=== PATIENT | female | born 1945 | race Caucasian/White ===

== ENCOUNTER 2017-03-18 11:03 | Emergency (ER) | payer MEDICARE, BC ==
[2017-03-18 12:48] LABS: HEMOGLOBIN 13.1 gm/dl (12.3-15.3); RED BLOOD COUNT 4.52 M/UL (4.00-5.10); WHITE BLOOD COUNT 11.4 K/UL (4.5-11.0)
[2017-03-18 13:10] LABS: BUN/CREATININE RATIO 20 (0-10)
== END 2017-03-18 16:30 | disposition home or self-care (01) ==
LOC: ER1 11:03
PROVIDERS: Physician Assistant
DX: K86.1 Other chronic pancreatitis (principal); N39.0 Urinary tract infection, site not specified; E87.6 Hypokalemia; F17.210 Nicotine dependence, cigarettes, uncomplicated; Z88.0 Allergy status to penicillin; Z79.899 Other long term (current) drug therapy; R19.7 Diarrhea, unspecified
CPT/HCPCS: 36415; 71020; 80053; 81001; 82550; 82553; 83690; 83874; 84484; 85025; 87086; 93005; 96361; 96374; 96375; 99285; J2270; J2405

== ENCOUNTER → 2017-03-19 | Outpatient (CLI) | payer MEDICARE, BC ==
[~2017-03-19] MED LIST: ALBUTEROL0.63 MG/3 INH; ASPIR-LOW81 MG PO; COMBIVENT0.074 GM/I INH; DIOVAN160 MG PO; FLAGYL500 MG PO; HYDROCHLOROTHIA25 MG PO; LACTINEX PACKET1 PKT PO; LOPERAMIDE2 MG PO; MELATONIN10 M2 PO; NEURONTIN 400400 MG PO; NEXIUM40 MG PO; OFEV150 MG PO; OMNICEF 300 MG300 MG PO; PHENERGAN 25 MG25 M1 PO; PROTONIX40 MG PO; REMERON30 MG PO; SERTRALINE HCL100 MG PO; SYNTHROID150 MCG PO; VALSARTAN-HCTZ1 EAC1 PO
== END ==
LOC: LAB 11:02
DX: K57.30 Diverticulosis of large intestine without perforation or abscess without bleeding (principal); K86.1 Other chronic pancreatitis; N30.00 Acute cystitis without hematuria; E87.6 Hypokalemia
CPT/HCPCS: 36415; 84132

== ENCOUNTER 2017-03-21 15:58 | Outpatient (CLI) | payer MEDICARE, BC ==
[~2017-03-21] VITALS: Ht 157.5 cm; Wt 81.6 kg
[2017-03-21] MEDS ORDERED: ALBUTEROL0.63 MG/3 INH (17:21)
[2017-03-21] MEDS ORDERED: OMNICEF 300 MG300 MG PO (17:22)
[2017-03-21] MEDS ORDERED: FLAGYL500 MG PO (17:23)
[2017-03-21] MEDS ORDERED: COMBIVENT0.074 GM/I INH (17:23)
[2017-03-21] MEDS ORDERED: NEURONTIN 400400 MG PO (17:24)
[2017-03-21] MEDS ORDERED: SYNTHROID150 MCG PO (17:24)
[2017-03-21] MEDS ORDERED: OFEV150 MG PO (17:25)
[2017-03-21] MEDS ORDERED: NEXIUM40 MG PO (17:25)
[2017-03-21] MEDS ORDERED: MELATONIN10 M2 PO (17:25)
[2017-03-21] MEDS ORDERED: PHENERGAN 25 MG25 M1 PO (17:26)
[2017-03-21] MEDS ORDERED: REMERON30 MG PO (17:27)
[2017-03-21] MEDS ORDERED: SERTRALINE HCL100 MG PO (17:27)
[2017-03-21] MEDS ORDERED: VALSARTAN-HCTZ1 EAC1 PO (17:28)
[2017-03-21 21:22] LABS: RED BLOOD COUNT 5.22 M/UL (4.00-5.10); WHITE BLOOD COUNT 14.8 K/UL (4.5-11.0)
[2017-03-21 21:25] LABS: HEMOGLOBIN 15.3 gm/dl (12.3-15.3)
[2017-03-21 21:41] LABS: BUN/CREATININE RATIO 13 (0-10)
== END 2017-03-22 09:19 | disposition home or self-care (01) ==
LOC: OPSV 15:58 → M/S 16:01 → OPSV 20:40 → M/S 20:40 → OPSV 03-22 09:19 → M/S 03-22 09:19
PROVIDERS: Internal Medicine
DX: E86.0 Dehydration (principal); M62.81 Muscle weakness (generalized); R53.83 Other fatigue
CPT/HCPCS: 36415; 80048; 85027; 94660; 94664; J7030; Q0162

== ENCOUNTER 2017-03-26 11:26 | Inpatient (IN) | payer MEDICARE, BC ==
[~2017-03-26] VITALS: Ht 157.5 cm; Wt 76.7 kg
[~2017-03-26 11:26] MED LIST changes: -ASPIR-LOW81 MG PO; -DIOVAN160 MG PO; -HYDROCHLOROTHIA25 MG PO; -LACTINEX PACKET1 PKT PO; -LOPERAMIDE2 MG PO; -PROTONIX40 MG PO
[2017-03-26 15:00] LABS: HEMOGLOBIN 14.7 gm/dl (12.3-15.3); RED BLOOD COUNT 5.12 M/UL (4.00-5.10); WHITE BLOOD COUNT 12.1 K/UL (4.5-11.0)
[2017-03-26 15:20] LABS: BUN/CREATININE RATIO 14 (0-10)
[2017-03-27 04:22] LABS: HEMOGLOBIN 13.9 gm/dl (12.3-15.3); RED BLOOD COUNT 4.75 M/UL (4.00-5.10)
[2017-03-27 05:02] LABS: BUN/CREATININE RATIO 11 (0-10)
[2017-03-28 07:34] LABS: BUN/CREATININE RATIO 12 (0-10)
[2017-03-29] MEDS ORDERED: PROTONIX40 MG PO (10:25)
[2017-03-29] MEDS ORDERED: DIOVAN160 MG PO (10:28)
== END 2017-03-29 08:44 | disposition home or self-care (01) | DRG 439 ==
LOC: MED SURG 4 11:26
PROVIDERS: Internal Medicine Gastroenterology; ADMIT Emergency Medicine
PROC: 0DB68ZX Excision of Stomach, Via Natural or Artificial Opening Endoscopic, Diagnostic (ICD-10-PCS; principal; 2017-03-27 12:15)
PROC: 0DB78ZX Excision of Stomach, Pylorus, Via Natural or Artificial Opening Endoscopic, Diagnostic (ICD-10-PCS; principal; 2017-03-27 12:15)
DX: K85.90 Acute pancreatitis without necrosis or infection, unspecified (principal); K22.10 Ulcer of esophagus without bleeding; I10 Essential (primary) hypertension; J44.9 Chronic obstructive pulmonary disease, unspecified; K25.9 Gastric ulcer, unspecified as acute or chronic, without hemorrhage or perforation; K44.9 Diaphragmatic hernia without obstruction or gangrene; E03.9 Hypothyroidism, unspecified; K21.0 Gastro-esophageal reflux disease with esophagitis; F32.9 Major depressive disorder, single episode, unspecified; K31.89 Other diseases of stomach and duodenum; G47.00 Insomnia, unspecified; E78.5 Hyperlipidemia, unspecified; K86.1 Other chronic pancreatitis; N39.3 Stress incontinence (female) (male); E55.9 Vitamin D deficiency, unspecified; G47.30 Sleep apnea, unspecified; F17.210 Nicotine dependence, cigarettes, uncomplicated; Z79.899 Other long term (current) drug therapy; Z91.041 Radiographic dye allergy status; Z88.1 Allergy status to other antibiotic agents; Z88.0 Allergy status to penicillin; Z91.09 Other allergy status, other than to drugs and biological substances; E87.6 Hypokalemia; J84.10 Pulmonary fibrosis, unspecified; G62.9 Polyneuropathy, unspecified
CPT/HCPCS: 36415; 71250; 80048; 80053; 80061; 81001; 82150; 82550; 82553; 83690; 83735; 84132; 84484; 85025; 85027; 93005; 94640; 94664; 94760; C9113; G0378; J1335; J2250; J2405; J7040; J7050; Q0162

== ENCOUNTER 2017-04-05 07:59 | Inpatient (IN) | payer MEDICARE, BC ==
[~2017-04-05] VITALS: Ht 157.5 cm; Wt 73.0 kg
[~2017-04-05 07:59] MED LIST changes: +DIOVAN160 MG PO; +PROTONIX40 MG PO
[2017-04-05 08:57] LABS: HEMOGLOBIN 14.8 gm/dl (12.3-15.3); RED BLOOD COUNT 5.07 M/UL (4.00-5.10); WHITE BLOOD COUNT 16.2 K/UL (4.5-11.0)
[2017-04-05 09:18] LABS: BUN/CREATININE RATIO 14 (0-10)
[2017-04-05 12:21] LABS: ADENOVIRUS F 40/41 Not Detected (Negative); ASTROVIRUS Not Detected (Negative); CAMPYLOBACTER Not Detected (Negative); CRYPTOSPORIDIUM Not Detected (Negative); E.COLI 0157 Not Detected (Negative); ENTAMOEBA HISTOLYTICA Not Detected (Negative); ENTEROAGGREGATIVE E.COLI (EAEC Not Detected (Negative); ENTEROPATHOGENIC E.COLI (EPEC) Not Detected (Negative); ENTEROTOXIGENIC E.COLI (ETEC) Not Detected (Negative); GIARDIA LAMBLIA Not Detected (Negative); NOROVIRUS GI/GII Not Detected (Negative); PLESIOMONAS SHIGELLOIDES Not Detected (Negative); ROTOVIRUS A Not Detected (Negative); SALMONELLA Not Detected (Negative); SAPOVIRUS Not Detected (Negative); SHIG/ENTEROINVAS.ECOLI (EIEC) Not Detected (Negative); SHIGA-LIK TOX.PRO.E.COLI (STEC Not Detected (Negative); VIBRIO Not Detected (Negative); VIBRIO CHOLERAE Not Detected (Negative); YERSINIA ENTEROCOLITICA Not Detected (Negative)
[2017-04-05 14:13] LABS: CLOSTRIDIUM DIFFICILE TOX A/B DETECTED (Negative)
[2017-04-06] MEDS ORDERED: LOPERAMIDE2 MG PO (00:26)
[2017-04-06] MEDS ORDERED: HYDROCHLOROTHIA25 MG PO (01:41)
[2017-04-06 05:25] LABS: HEMOGLOBIN 12.2 gm/dl (12.3-15.3); RED BLOOD COUNT 4.18 M/UL (4.00-5.10); WHITE BLOOD COUNT 12.1 K/UL (4.5-11.0)
[2017-04-06 05:45] LABS: BUN/CREATININE RATIO 20 (0-10)
[2017-04-07 07:46] LABS: HEMOGLOBIN 12.5 gm/dl (12.3-15.3); RED BLOOD COUNT 4.36 M/UL (4.00-5.10)
[2017-04-07 07:50] LABS: WHITE BLOOD COUNT 8.9 K/UL (4.5-11.0)
[2017-04-07 08:15] LABS: BUN/CREATININE RATIO 16 (0-10)
[2017-04-08 04:44] LABS: HEMOGLOBIN 12.8 gm/dl (12.3-15.3); RED BLOOD COUNT 4.45 M/UL (4.00-5.10); WHITE BLOOD COUNT 10.3 K/UL (4.5-11.0)
[2017-04-08 04:54] LABS: BUN/CREATININE RATIO 20 (0-10)
[2017-04-08] MEDS ORDERED: FLAGYL500 MG PO (12:28)
[2017-04-08] MEDS ORDERED: ASPIR-LOW81 MG PO (12:37)
[2017-04-08] MEDS ORDERED: LACTINEX PACKET1 PKT PO (12:39)
== END 2017-04-08 08:12 | disposition home or self-care (01) | DRG 372 ==
LOC: ER1 07:59 → ZEROF 10:28 → PROG CARE 04-06 00:16 → MED SURG 4 04-07 12:08
PROVIDERS: Emergency Medicine; Family Medicine; ADMIT Emergency Medicine
DX: A04.7 Enterocolitis due to Clostridium difficile (principal); I47.1 Supraventricular tachycardia; E87.1 Hypo-osmolality and hyponatremia; E86.0 Dehydration; E87.6 Hypokalemia; J44.9 Chronic obstructive pulmonary disease, unspecified; J84.10 Pulmonary fibrosis, unspecified; I10 Essential (primary) hypertension; E03.9 Hypothyroidism, unspecified; F17.200 Nicotine dependence, unspecified, uncomplicated; Z79.899 Other long term (current) drug therapy; Z88.0 Allergy status to penicillin; Z88.3 Allergy status to other anti-infective agents; Z88.5 Allergy status to narcotic agent; E78.5 Hyperlipidemia, unspecified; K76.0 Fatty (change of) liver, not elsewhere classified; N39.3 Stress incontinence (female) (male); E66.9 Obesity, unspecified; Z68.30 Body mass index [BMI] 30.0-30.9, adult; Z72.3 Lack of physical exercise; Z88.8 Allergy status to other drugs, medicaments and biological substances; Z91.040 Latex allergy status; Z90.710 Acquired absence of both cervix and uterus; Z90.49 Acquired absence of other specified parts of digestive tract; Z98.890 Other specified postprocedural states; Z82.49 Family history of ischemic heart disease and other diseases of the circulatory system
CPT/HCPCS: ECHO; 36415; 71010; 80048; 80053; 82550; 82553; 83880; 84132; 84443; 84484; 85007; 85025; 85027; 85610; 85730; 87507; 89055; 93005; 93306; 94640; 94664; 96374; 96375; 99291; J0153; J1650; J2405; J2930; J3370; Q0162; Q0177

== ENCOUNTER 2021-02-21 12:45 | Inpatient (IN) | payer MEDICARE, BC ==
[~2021-02-21] VITALS: Ht 157.5 cm; Wt 69.4 kg
[~2021-02-21 12:45] MED LIST changes: +AMLODIPINE BESYL5 MG PO; +ASPIR-LOW81 MG PO; +AZITHROMYCIN250 MG PO; +BYSTOLIC5 MG PO; +DILTIAZEM ER120 M1 PO; +DIOVAN320 MG PO; +DOXYCYCLINE HY100 M2 PO; +HYDROCHLOROTHIA25 MG PO; +IPRAT-ALBUT 0.5-3 ML INH; +IPRATROPIU0.2 MG/1 M INH; +LACTINEX PACKET1 PKT PO; +LOPERAMIDE2 MG PO; +MACROBID 100 M100 MG PO; +MEDROL DOSEPAK 24 MG PO; +MEDROL4 MG PO; +MIRTAZAPINE45 MG PO; -NEURONTIN 400400 MG PO; +NEURONTIN600 MG PO; +ONE-DAILY MULT1 EACH PO; +PREDNISONE20 MG PO; -REMERON30 MG PO; +SYMBICORT 160-1 INHA INH; +VENTOLIN HFA 66.7 GM INH; +VIBRAMYCIN100 MG PO; +VITAMIN C500 M4 PO; +VITAMIN D 40400 UNIT PO; +ZINC50 M1 PO; +ZITHROMAX250 MG PO; +ZYRTEC10 MG PO
[2021-02-21 13:58] LABS: HEMOGLOBIN 12.6 gm/dl (12.3-15.3); RED BLOOD COUNT 4.31 M/UL (4.00-5.10); WHITE BLOOD COUNT 12.6 K/UL (4.5-11.0)
[2021-02-21 14:24] LABS: BUN/CREATININE RATIO 27 (0-10)
[2021-02-21] MEDS ORDERED: COQ-10100 MG PO (17:39)
[2021-02-21] MEDS ORDERED: SINGULAIR10 MG PO (17:40)
[2021-02-21] MEDS ORDERED: COREG 12.5MG12.5 MG PO (17:40)
[2021-02-21] MEDS ORDERED: AMMONIUM LACTA225 GM TOP (17:41)
[2021-02-22 04:50] LABS: HEMOGLOBIN 11.9 gm/dl (12.3-15.3); RED BLOOD COUNT 4.19 M/UL (4.00-5.10)
[2021-02-22 04:56] LABS: WHITE BLOOD COUNT 8.3 K/UL (4.5-11.0)
[2021-02-22 05:14] LABS: BUN/CREATININE RATIO 39 (0-10)
[2021-02-25 03:10] LABS: BUN/CREATININE RATIO 49 (0-10)
[2021-02-26] MEDS ORDERED: CATAPRES 0.1MG0.1 MG PO (08:46)
[2021-02-26] MEDS ORDERED: PREDNISONE 10 M10 MG PO (08:51)
[2021-02-27 03:21] LABS: HEMOGLOBIN 13.2 gm/dl (12.3-15.3); RED BLOOD COUNT 4.6 M/UL (4.00-5.10); WHITE BLOOD COUNT 16.5 K/UL (4.5-11.0)
[2021-02-27 03:34] LABS: BUN/CREATININE RATIO 43 (0-10)
[2021-02-27] MEDS ORDERED: CATAPRES 0.1MG0.1 MG PO (10:50)
[2021-02-27] MEDS ORDERED: CEFUROXIME500 MG PO (11:17)
== END 2021-02-27 12:37 | disposition home or self-care (01) | DRG 189 ==
LOC: ER1 12:45 → CDU 16:29 → PROG CARE 16:29
PROVIDERS: Emergency Medicine; Internal Medicine Cardiovascular Disease; Physician Assistant; ADMIT Internal Medicine
PROC: B24BZZ4 Ultrasonography of Heart with Aorta, Transesophageal (ICD-10-PCS; principal; 2021-02-23)
DX: J96.21 Acute and chronic respiratory failure with hypoxia (principal); J44.1 Chronic obstructive pulmonary disease with (acute) exacerbation; E87.1 Hypo-osmolality and hyponatremia; I16.1 Hypertensive emergency; J96.22 Acute and chronic respiratory failure with hypercapnia; J84.112 Idiopathic pulmonary fibrosis; I25.10 Atherosclerotic heart disease of native coronary artery without angina pectoris; I48.91 Unspecified atrial fibrillation; K21.9 Gastro-esophageal reflux disease without esophagitis; F17.210 Nicotine dependence, cigarettes, uncomplicated; I10 Essential (primary) hypertension; I70.1 Atherosclerosis of renal artery; I16.0 Hypertensive urgency; Z20.822 Contact with and (suspected) exposure to COVID-19; E66.01 Morbid (severe) obesity due to excess calories; G47.33 Obstructive sleep apnea (adult) (pediatric); E03.9 Hypothyroidism, unspecified; I27.20 Pulmonary hypertension, unspecified; I25.2 Old myocardial infarction; Z79.01 Long term (current) use of anticoagulants; Z88.0 Allergy status to penicillin; Z88.1 Allergy status to other antibiotic agents; Z91.041 Radiographic dye allergy status; Z91.040 Latex allergy status; Z90.710 Acquired absence of both cervix and uterus; Z82.49 Family history of ischemic heart disease and other diseases of the circulatory system; Z83.3 Family history of diabetes mellitus; Z90.49 Acquired absence of other specified parts of digestive tract
CPT/HCPCS: ECHO; 36415; 36600; 71045; 71046; 74175; 80048; 80053; 81001; 82550; 82553; 82803; 83880; 84484; 85025; 85610; 85730; 87040; 87070; 87077; 87205; 93005; 93306; 94640; 94664; 94760; 96374; 96375; 99285; J0360; J0696; J1200; J1940; J2920; J2930; Q9967; U0002

== ENCOUNTER 2021-04-03 14:38 | Inpatient (IN) | payer MEDICARE, BC ==
[~2021-04-03] VITALS: Ht 157.5 cm; Wt 75.5 kg
[~2021-04-03 14:38] MED LIST changes: +AMMONIUM LACTA225 GM TOP; +CATAPRES 0.1MG0.1 MG PO; +CEFUROXIME500 MG PO; +COQ-10100 MG PO; +COREG 12.5MG12.5 MG PO; +PREDNISONE 10 M10 MG PO; +SINGULAIR10 MG PO
[2021-04-03 15:13] LABS: HEMOGLOBIN 12.4 gm/dl (12.3-15.3); RED BLOOD COUNT 4.22 M/UL (4.00-5.10); WHITE BLOOD COUNT 16.8 K/UL (4.5-11.0)
[2021-04-03 15:39] LABS: BUN/CREATININE RATIO 29 (0-10)
[2021-04-03] MEDS ORDERED: NICOTINE PATCH1 EAC5 TD (16:54)
[2021-04-03] MEDS ORDERED: REMERON15 MG PO (16:54)
[2021-04-03] MEDS ORDERED: BREZTRI AEROS10.7 GM INH (18:37)
[2021-04-04 04:19] LABS: HEMOGLOBIN 11.5 gm/dl (12.3-15.3); RED BLOOD COUNT 3.96 M/UL (4.00-5.10); WHITE BLOOD COUNT 13.2 K/UL (4.5-11.0)
[2021-04-04 04:42] LABS: BUN/CREATININE RATIO 31 (0-10)
[2021-04-05 04:50] LABS: HEMOGLOBIN 11.5 gm/dl (12.3-15.3)
[2021-04-05 05:03] LABS: WHITE BLOOD COUNT 19.8 K/UL (4.5-11.0)
[2021-04-05 05:15] LABS: BUN/CREATININE RATIO 42 (0-10)
[2021-04-07 04:04] LABS: HEMOGLOBIN 11.2 gm/dl (12.3-15.3); RED BLOOD COUNT 3.95 M/UL (4.00-5.10); WHITE BLOOD COUNT 18.7 K/UL (4.5-11.0)
[2021-04-07 04:31] LABS: BUN/CREATININE RATIO 42 (0-10)
[2021-04-08 02:52] LABS: HEMOGLOBIN 10.5 gm/dl (12.3-15.3); RED BLOOD COUNT 3.81 M/UL (4.00-5.10)
[2021-04-08 02:55] LABS: WHITE BLOOD COUNT 28.6 K/UL (4.5-11.0)
[2021-04-08 03:05] LABS: BUN/CREATININE RATIO 53 (0-10)
[2021-04-09 07:09] LABS: HEMOGLOBIN 10.1 gm/dl (12.3-15.3); RED BLOOD COUNT 3.54 M/UL (4.00-5.10); WHITE BLOOD COUNT 24.7 K/UL (4.5-11.0)
[2021-04-10 02:14] LABS: HEMOGLOBIN 8.3 gm/dl (12.3-15.3); WHITE BLOOD COUNT 21.3 K/UL (4.5-11.0)
[2021-04-10 02:36] LABS: RED BLOOD COUNT 3.01 M/UL (4.00-5.10)
[2021-04-10 15:04] LABS: HEMOGLOBIN 9.2 gm/dl (12.3-15.3)
[2021-04-11 08:59] LABS: HEMOGLOBIN 9.8 gm/dl (12.3-15.3); RED BLOOD COUNT 3.26 M/UL (4.00-5.10); WHITE BLOOD COUNT 21.9 K/UL (4.5-11.0)
[2021-04-11 09:58] LABS: BUN/CREATININE RATIO 52 (0-10)
[2021-04-12 08:04] LABS: HEMOGLOBIN 9.6 gm/dl (12.3-15.3); RED BLOOD COUNT 3.28 M/UL (4.00-5.10); WHITE BLOOD COUNT 20.8 K/UL (4.5-11.0)
[2021-04-12 08:23] LABS: BUN/CREATININE RATIO 51 (0-10)
[2021-04-12 19:35] LABS: HEMOGLOBIN 8.9 gm/dl (12.3-15.3); RED BLOOD COUNT 3.1 M/UL (4.00-5.10); WHITE BLOOD COUNT 21.2 K/UL (4.5-11.0)
[2021-04-13 03:26] LABS: RED BLOOD COUNT 3.09 M/UL (4.00-5.10); WHITE BLOOD COUNT 17.4 K/UL (4.5-11.0)
[2021-04-13 03:44] LABS: BUN/CREATININE RATIO 39 (0-10)
[2021-04-13] MEDS ORDERED: HEARTBURN RELIE10 MG PO (12:10)
[2021-04-13] MEDS ORDERED: NITROGLYCERIN0.4 MG SL (12:10)
[2021-04-13] MEDS ORDERED: PROTONIX 40 MG40 M1 PO (12:10)
[2021-04-13] MEDS ORDERED: FERROUS GLUCON324 M1 PO (12:10)
[2021-04-13] MEDS ORDERED: LOPRESSOR 25 MG25 MG PO (12:10)
[2021-04-13] MEDS ORDERED: CARAFATE 1 GM TA1 GM PO (12:10)
[2021-04-13] MEDS ORDERED: MAALOX PLUS 3030 ML PO (12:10)
[2021-04-13] MEDS ORDERED: ATORVASTATIN CA20 MG PO (12:10)
[2021-04-13] MEDS ORDERED: ASPIRIN EC81 MG PO (12:10)
[2021-04-13] MEDS ORDERED: BRILINTA 90 MG90 MG PO (12:10)
[2021-04-13] MEDS ORDERED: VALSARTAN80 MG PO (13:07)
[2021-04-13] MEDS ORDERED: CATAPRES 0.1MG0.1 MG PO (13:07)
== END 2021-04-13 15:47 | disposition home health service (06) | DRG 246 ==
LOC: ER1 14:38 → CDU 16:11 → MED SURG 4 16:11 → ER1 17:06 → MED SURG 4 17:20 → PROG CARE 04-05 15:26
PROVIDERS: Emergency Medicine; Internal Medicine; Internal Medicine Interventional Cardiology; Physician Assistant Medical; ADMIT Internal Medicine
PROC: 4A023N7 Measurement of Cardiac Sampling and Pressure, Left Heart, Percutaneous Approach (ICD-10-PCS; principal; 2021-04-07)
PROC: 027034Z Dilation of Coronary Artery, One Artery with Drug-eluting Intraluminal Device, Percutaneous Approach (ICD-10-PCS; 2021-04-07)
PROC: B2151ZZ Fluoroscopy of Left Heart using Low Osmolar Contrast (ICD-10-PCS; 2021-04-07)
PROC: B41F1ZZ Fluoroscopy of Right Lower Extremity Arteries using Low Osmolar Contrast (ICD-10-PCS; 2021-04-07)
DX: I21.4 Non-ST elevation (NSTEMI) myocardial infarction (principal); J18.9 Pneumonia, unspecified organism; J96.21 Acute and chronic respiratory failure with hypoxia; J84.10 Pulmonary fibrosis, unspecified; K21.9 Gastro-esophageal reflux disease without esophagitis; G47.33 Obstructive sleep apnea (adult) (pediatric); J44.9 Chronic obstructive pulmonary disease, unspecified; D72.829 Elevated white blood cell count, unspecified; I16.0 Hypertensive urgency; E03.9 Hypothyroidism, unspecified; G62.9 Polyneuropathy, unspecified; J84.112 Idiopathic pulmonary fibrosis; I25.10 Atherosclerotic heart disease of native coronary artery without angina pectoris; K27.9 Peptic ulcer, site unspecified, unspecified as acute or chronic, without hemorrhage or perforation; F41.9 Anxiety disorder, unspecified; E56.9 Vitamin deficiency, unspecified; F32.9 Major depressive disorder, single episode, unspecified; D50.9 Iron deficiency anemia, unspecified; Z90.49 Acquired absence of other specified parts of digestive tract; Z90.710 Acquired absence of both cervix and uterus; Z88.0 Allergy status to penicillin; Z72.0 Tobacco use; Z88.8 Allergy status to other drugs, medicaments and biological substances; Z88.6 Allergy status to analgesic agent; Z91.041 Radiographic dye allergy status; Z91.040 Latex allergy status; Z82.49 Family history of ischemic heart disease and other diseases of the circulatory system; Z83.3 Family history of diabetes mellitus
CPT/HCPCS: ECHO; 0240U; 36415; 36600; 71045; 71046; 80048; 80053; 81001; 82550; 82553; 82607; 82746; 82803; 83540; 83550; 83605; 83615; 83690; 83735; 83874; 83880; 84100; 84484; 85014; 85018; 85025; 85027; 85045; 85347; 85610; 85730; 86140; 86880; 87040; 93005; 93306; 94640; 94664; 94760; 96374; 96375; 96376; 97110-GP-CQ; 97116-GP-CQ; 97162; 99152; 99153; 99285; C1725; C1769; C1874; C9600; G0378; J0360; J0456; J0461; J0696; J1335; J1644; J1650; J1756; J1940; J2250; J2270; J2405; J2550; J2930; J3010; J7030; J7040; Q9967; U0002

== ENCOUNTER 2021-05-15 10:04 | Emergency (ER) | payer MEDICARE, BC ==
[~2021-05-15 10:04] MED LIST changes: +ASPIRIN EC81 MG PO; +ATORVASTATIN CA20 MG PO; +BREZTRI AEROS10.7 GM INH; +BRILINTA 90 MG90 MG PO; +CARAFATE 1 GM TA1 GM PO; +FERROUS GLUCON324 M1 PO; +HEARTBURN RELIE10 MG PO; +LOPRESSOR 25 MG25 MG PO; +MAALOX PLUS 3030 ML PO; +NICOTINE PATCH1 EAC5 TD; +NITROGLYCERIN0.4 MG SL; +PROTONIX 40 MG40 M1 PO; +REMERON15 MG PO; +VALSARTAN80 MG PO
[2021-05-15 11:26] LABS: HEMOGLOBIN 11.8 gm/dl (12.3-15.3); RED BLOOD COUNT 3.89 M/UL (4.00-5.10); WHITE BLOOD COUNT 13.7 K/UL (4.5-11.0)
[2021-05-15 11:54] LABS: BUN/CREATININE RATIO 24 (0-10)
[2021-05-15] MEDS ORDERED: OMNICEF 300 MG300 MG PO (13:53)
== END 2021-05-15 14:12 | disposition home or self-care (01) ==
LOC: ER1 10:04
PROVIDERS: Physician Assistant
DX: J44.0 Chronic obstructive pulmonary disease with (acute) lower respiratory infection (principal); J18.9 Pneumonia, unspecified organism; I10 Essential (primary) hypertension; Z88.1 Allergy status to other antibiotic agents; F17.210 Nicotine dependence, cigarettes, uncomplicated
CPT/HCPCS: 71045; 80053; 82550; 82553; 83874; 84484; 85025; 93005; 94664; 96372; 99284; J0696; J2930

== ENCOUNTER → 2021-06-02 | Outpatient (CLI) | payer MEDICARE, BC | LOC: MAMO 13:08 | DX: Z12.31 Encounter for screening mammogram for malignant neoplasm of breast (principal) | CPT/HCPCS: 77063; 77067 ==

== ENCOUNTER → 2021-06-06 | Outpatient (CLI) | payer MEDICARE, BC | LOC: KOH-I 14:00 | DX: Z12.2 Encounter for screening for malignant neoplasm of respiratory organs (principal); Z87.891 Personal history of nicotine dependence; J84.9 Interstitial pulmonary disease, unspecified; R91.8 Other nonspecific abnormal finding of lung field | CPT/HCPCS: 71271 ==

== ENCOUNTER 2021-06-07 16:52 | Emergency (ER) | payer MEDICARE, BC ==
[2021-06-07 17:20] LABS: HEMOGLOBIN 13.2 gm/dl (12.3-15.3); RED BLOOD COUNT 4.26 M/UL (4.00-5.10); WHITE BLOOD COUNT 19.8 K/UL (4.5-11.0)
[2021-06-07 17:46] LABS: BUN/CREATININE RATIO 21 (0-10)
[2021-06-07] MEDS ORDERED: PREDNISONE20 MG PO (21:26)
[2021-06-07] MEDS ORDERED: OMNICEF 300 MG300 MG PO (21:26)
== END 2021-06-07 23:01 | disposition home or self-care (01) ==
LOC: ER1 16:52
PROVIDERS: Family Medicine
DX: J44.1 Chronic obstructive pulmonary disease with (acute) exacerbation (principal); N39.0 Urinary tract infection, site not specified; G47.33 Obstructive sleep apnea (adult) (pediatric); D72.829 Elevated white blood cell count, unspecified; I10 Essential (primary) hypertension; Z88.0 Allergy status to penicillin; Z88.1 Allergy status to other antibiotic agents; F17.200 Nicotine dependence, unspecified, uncomplicated; Z20.822 Contact with and (suspected) exposure to COVID-19
CPT/HCPCS: 0240U; 36600; 71045; 80053; 81001; 82550; 82553; 82803; 83605; 83874; 83880; 84484; 85025; 87040; 87086; 93005; 94664; 96374; 99285; J0696

== ENCOUNTER → 2021-07-14 | Outpatient (CLI) | payer MEDICARE, BC | LOC: EXRD 10:13 | DX: R06.02 Shortness of breath (principal) | CPT/HCPCS: 71046 ==

== ENCOUNTER → 2021-07-28 | Outpatient (CLI) | payer MEDICARE, BC | LOC: EXRD 11:23 | DX: J43.9 Emphysema, unspecified (principal); R05 Cough | CPT/HCPCS: 71045; 71101 ==

== ENCOUNTER → 2021-08-03 | Outpatient (CLI) | payer MEDICARE, BC | LOC: US 08:30 | DX: R10.9 Unspecified abdominal pain (principal); R11.0 Nausea; Z90.49 Acquired absence of other specified parts of digestive tract | CPT/HCPCS: 76705 ==

== ENCOUNTER 2021-08-27 19:55 | Inpatient (IN) | payer MEDICARE, BC ==
[~2021-08-27] VITALS: Ht 157.5 cm; Wt 78.5 kg
[2021-08-27 20:18] LABS: HEMOGLOBIN 11.5 gm/dl (12.3-15.3); RED BLOOD COUNT 3.74 M/UL (4.00-5.10); WHITE BLOOD COUNT 13.6 K/UL (4.5-11.0)
[2021-08-28] MEDS ORDERED: COREG 12.5MG12.5 MG PO (01:04)
[2021-08-28] MEDS ORDERED: QUERCETIN PO (01:12)
[2021-08-28] MEDS ORDERED: CLOPIDOGREL75 MG PO (01:14)
[2021-08-28] MEDS ORDERED: VALSARTAN320 MG PO (01:40)
[2021-08-28] MEDS ORDERED: VITAMIN D3125 MCG PO (02:04)
[2021-08-28] MEDS ORDERED: VITAMIN C500 M4 PO (02:04)
[2021-08-28 04:22] LABS: HEMOGLOBIN 10.7 gm/dl (12.3-15.3); RED BLOOD COUNT 3.54 M/UL (4.00-5.10)
[2021-08-28 04:24] LABS: WHITE BLOOD COUNT 9.8 K/UL (4.5-11.0)
--- NOTE | 2021-08-28 06:28 | NUR ---
NOTIFIED DR ANGLIN OF [facility]TS REPIRATORY ABG RESULTS. NO NEW ORDERS AT THIS TIME.
[2021-08-28] MEDS ORDERED: CLONIDINE HCL0.1 MG PO (09:31)
[2021-08-29 04:00] LABS: HEMOGLOBIN 10.8 gm/dl (12.3-15.3); RED BLOOD COUNT 3.59 M/UL (4.00-5.10)
[2021-08-29 04:02] LABS: WHITE BLOOD COUNT 12.8 K/UL (4.5-11.0)
[2021-08-29 04:25] LABS: BUN/CREATININE RATIO 29 (0-10)
[2021-08-30 05:53] LABS: HEMOGLOBIN 11.1 gm/dl (12.3-15.3); RED BLOOD COUNT 3.72 M/UL (4.00-5.10)
[2021-08-30 09:52] LABS: HEMOGLOBIN 11.5 gm/dl (12.3-15.3); RED BLOOD COUNT 3.89 M/UL (4.00-5.10); WHITE BLOOD COUNT 14.3 K/UL (4.5-11.0)
[2021-08-30 12:05] LABS: BUN/CREATININE RATIO 34 (0-10)
--- NOTE | 2021-08-30 13:06 | NUR ---
PT CALLED TO CONFIRM EVALUATION. THEY HAVE THE ORDER AND WILL BE SEEING THE PATIENT HTS AFTERNOON
[2021-08-30] MEDS ORDERED: MEDROL DOSEPAK 24 MG PO (18:21)
[2021-08-30] MEDS ORDERED: AMLODIPINE BESYL5 MG PO (18:21)
[2021-08-30] MEDS ORDERED: CEFUROXIME250 MG PO (18:21)
[2021-08-30] MEDS ORDERED: DIAMOX 250 MG250 MG PO (18:21)
[2021-08-30] MEDS ORDERED: LASIX20 MG PO (18:21)
--- NOTE | 2021-08-30 21:15 | NUR ---
2100 IV OUT, PT IS STABLE AND HAS HOME 02 ON. PT WAS TRANSFERRED TO CAR BY WHEELCHAIR.
== END 2021-08-30 21:00 | disposition home or self-care (01) | DRG 291 ==
LOC: ER1 19:55 → PROG CARE 21:07 → CDU 21:07 → PROG CARE 08-28 03:03
PROVIDERS: Family Medicine; Internal Medicine; ADMIT Internal Medicine
DX: I11.0 Hypertensive heart disease with heart failure (principal); I50.33 Acute on chronic diastolic (congestive) heart failure; J96.21 Acute and chronic respiratory failure with hypoxia; G93.41 Metabolic encephalopathy; J18.9 Pneumonia, unspecified organism; J44.1 Chronic obstructive pulmonary disease with (acute) exacerbation; I16.1 Hypertensive emergency; Z20.822 Contact with and (suspected) exposure to COVID-19; E87.3 Alkalosis; J44.0 Chronic obstructive pulmonary disease with (acute) lower respiratory infection; J84.10 Pulmonary fibrosis, unspecified; I16.0 Hypertensive urgency; I25.10 Atherosclerotic heart disease of native coronary artery without angina pectoris; E03.9 Hypothyroidism, unspecified; D72.829 Elevated white blood cell count, unspecified; T38.0X5A Adverse effect of glucocorticoids and synthetic analogues, initial encounter; F41.9 Anxiety disorder, unspecified; K21.9 Gastro-esophageal reflux disease without esophagitis; G47.33 Obstructive sleep apnea (adult) (pediatric); F17.210 Nicotine dependence, cigarettes, uncomplicated; E78.5 Hyperlipidemia, unspecified; G62.9 Polyneuropathy, unspecified; E66.9 Obesity, unspecified; Z90.49 Acquired absence of other specified parts of digestive tract; Z90.710 Acquired absence of both cervix and uterus; Z90.89 Acquired absence of other organs; Z88.0 Allergy status to penicillin; Z88.1 Allergy status to other antibiotic agents; Z88.8 Allergy status to other drugs, medicaments and biological substances; Z91.041 Radiographic dye allergy status; Z91.040 Latex allergy status; Z82.49 Family history of ischemic heart disease and other diseases of the circulatory system; Z68.31 Body mass index [BMI] 31.0-31.9, adult
CPT/HCPCS: 36415; 36600; 71045; 80048; 80053; 81001; 82550; 82553; 82803; 83605; 83735; 83874; 83880; 84484; 85025; 85027; 85610; 86140; 87040; 93005; 94640; 94660; 94664; 94760; 96374; 97161; 99285; J0360; J0692; J0696; J1120; J1650; J1940; J2920; J2930; J7070; U0002

== ENCOUNTER → 2021-11-08 | Outpatient (CLI) | payer MEDICARE, BC ==
[~2021-11-08] MED LIST changes: +CEFUROXIME250 MG PO; +CLONIDINE HCL0.1 MG PO; +CLOPIDOGREL75 MG PO; +DIAMOX 250 MG250 MG PO; +LASIX20 MG PO; +QUERCETIN PO; +VALSARTAN320 MG PO; +VITAMIN D3125 MCG PO
== END ==
LOC: KOH-I 10-25 11:30
DX: R51.9 Headache, unspecified (principal); H57.89 Other specified disorders of eye and adnexa
CPT/HCPCS: 70486

== ENCOUNTER → 2021-12-06 | Outpatient (CLI) | payer MEDICARE, BC | LOC: OPSV 10:50 | DX: N39.0 Urinary tract infection, site not specified (principal); E86.0 Dehydration; R19.7 Diarrhea, unspecified; Z16.24 Resistance to multiple antibiotics | CPT/HCPCS: 96360; 96365; J1335; J7030 ==

== ENCOUNTER → 2021-12-07 | Outpatient (CLI) | payer MEDICARE, BC ==
[~2021-12-07] VITALS: Ht 157.5 cm; Wt 77.1 kg
== END ==
LOC: OPSV 10:55
DX: N39.0 Urinary tract infection, site not specified (principal); E86.0 Dehydration; R19.7 Diarrhea, unspecified; Z16.24 Resistance to multiple antibiotics
CPT/HCPCS: 96360; 96365; J1335; J7030

== ENCOUNTER → 2021-12-08 | Outpatient (CLI) | payer MEDICARE, BC ==
[~2021-12-08] VITALS: Ht 157.5 cm; Wt 77.1 kg
[2021-12-08 10:19] LABS: BORDETELLA PARAPERTUSSIS Not Detected (Not Detectd); BORDETELLA PERTUSSIS Not Detected (Not Detectd); CHLAMYDIA PNEUMONIAE Not Detected (Not Detectd); CORONAVIRUS HKU1 Not Detected (Not Detectd); CORONAVIRUS NL63 Not Detected (Not Detectd); CORONAVIRUS OC43 Not Detected (Not Detectd); CORONOAVIRUS 229E Not Detected (Not Detectd); HUMAN METAPNEUMOVIRUS Not Detected (Not Detectd); HUMAN RHINOVIRUS/ENTEROVIRUS Not Detected (Not Detectd); INFLUENZA A Not Detected (Not Detectd); INFLUENZA B Not Detected (Not Detectd); MYCOPLASMA PNEUMONIAE Not Detected (Not Detectd); PARAINFLUENZA VIRUS 1 Not Detected (Not Detectd); PARAINFLUENZA VIRUS 2 Not Detected (Not Detectd); PARAINFLUENZA VIRUS 3 Not Detected (Not Detectd); PARAINFLUENZA VIRUS 4 Not Detected (Not Detectd); RESPIRATORY SYNCYTIAL VIRUS Not Detected (Not Detectd)
[2021-12-08 11:28] LABS: SARS-CoV-2 NOT DETECTED (Not Detectd)
== END ==
LOC: OPSV 09:37
PROVIDERS: Nurse Practitioner Family
DX: N39.0 Urinary tract infection, site not specified (principal); Z16.24 Resistance to multiple antibiotics; E86.0 Dehydration; R19.7 Diarrhea, unspecified; J44.9 Chronic obstructive pulmonary disease, unspecified; R06.02 Shortness of breath; Z20.822 Contact with and (suspected) exposure to COVID-19
CPT/HCPCS: 87633; 96360; 96365; J1335

== ENCOUNTER → 2021-12-09 | Outpatient (CLI) | payer MEDICARE, BC ==
[~2021-12-09] MED LIST changes: +AMLODIPINE BESY10 MG PO; +ATORVASTATIN CA40 MG PO; +FLONASE 0.05% N16 GM
== END ==
LOC: OPSV 07:00
DX: E86.0 Dehydration (principal); R19.7 Diarrhea, unspecified; N39.0 Urinary tract infection, site not specified; Z16.24 Resistance to multiple antibiotics
CPT/HCPCS: 96365

== ENCOUNTER 2021-12-10 19:55 | Inpatient (IN) | payer MEDICARE, BC ==
[~2021-12-10] VITALS: Ht 157.5 cm; Wt 80.3 kg
[~2021-12-10 19:55] MED LIST changes: -AMLODIPINE BESY10 MG PO; -ATORVASTATIN CA40 MG PO; -FLONASE 0.05% N16 GM
[2021-12-10 22:22] LABS: HEMOGLOBIN 10.8 gm/dl (12.3-15.3); RED BLOOD COUNT 3.56 M/UL (4.00-5.10); WHITE BLOOD COUNT 12.3 K/UL (4.5-11.0)
[2021-12-12 05:31] LABS: HEMOGLOBIN 9.6 gm/dl (12.3-15.3); RED BLOOD COUNT 3.28 M/UL (4.00-5.10)
[2021-12-12] MEDS ORDERED: AMLODIPINE BESY10 MG PO (11:06)
[2021-12-12] MEDS ORDERED: ASPIRIN EC81 MG PO (11:08)
[2021-12-12] MEDS ORDERED: ATORVASTATIN CA40 MG PO (11:08)
[2021-12-12] MEDS ORDERED: PROTONIX 40 MG40 M1 PO (11:12)
[2021-12-12] MEDS ORDERED: FLONASE 0.05% N16 GM (11:13)
[2021-12-12] MEDS ORDERED: OFEV150 MG PO (11:13)
[2021-12-12] MEDS ORDERED: HYDROCHLOROTHIA25 MG PO (11:14)
[2021-12-13 04:45] LABS: HEMOGLOBIN 10.2 gm/dl (12.3-15.3); RED BLOOD COUNT 3.44 M/UL (4.00-5.10); WHITE BLOOD COUNT 12.4 K/UL (4.5-11.0)
--- NOTE | 2021-12-13 11:57 | NUR ---
CALLED RT FOR A BREATHING TREATMENT PER PATIENT REQUEST
== END 2021-12-14 16:55 | disposition home or self-care (01) | DRG 690 ==
LOC: ER1 19:55 → CDU 12-11 05:55 → CCU 12-11 05:55 → CDU 12-11 05:55 → CCU 12-11 20:07 → M/S 12-12 14:02
PROVIDERS: Emergency Medicine; Physician Assistant Medical; ADMIT Internal Medicine
DX: N30.00 Acute cystitis without hematuria (principal); J96.11 Chronic respiratory failure with hypoxia; I50.32 Chronic diastolic (congestive) heart failure; J96.12 Chronic respiratory failure with hypercapnia; E87.2 Acidosis; N17.9 Acute kidney failure, unspecified; Z20.822 Contact with and (suspected) exposure to COVID-19; F17.290 Nicotine dependence, other tobacco product, uncomplicated; E03.9 Hypothyroidism, unspecified; J44.9 Chronic obstructive pulmonary disease, unspecified; I25.10 Atherosclerotic heart disease of native coronary artery without angina pectoris; I27.20 Pulmonary hypertension, unspecified; K21.9 Gastro-esophageal reflux disease without esophagitis; F41.9 Anxiety disorder, unspecified; I11.0 Hypertensive heart disease with heart failure; B96.4 Proteus (mirabilis) (morganii) as the cause of diseases classified elsewhere; J84.112 Idiopathic pulmonary fibrosis; E11.40 Type 2 diabetes mellitus with diabetic neuropathy, unspecified; R53.81 Other malaise; G47.33 Obstructive sleep apnea (adult) (pediatric); E66.9 Obesity, unspecified; D64.9 Anemia, unspecified; G47.00 Insomnia, unspecified; Z99.81 Dependence on supplemental oxygen; Z95.5 Presence of coronary angioplasty implant and graft; Z87.19 Personal history of other diseases of the digestive system; Z79.01 Long term (current) use of anticoagulants; Z79.82 Long term (current) use of aspirin; Z90.49 Acquired absence of other specified parts of digestive tract; Z90.710 Acquired absence of both cervix and uterus; Z88.0 Allergy status to penicillin; Z88.8 Allergy status to other drugs, medicaments and biological substances; Z88.1 Allergy status to other antibiotic agents; Z91.041 Radiographic dye allergy status; Z91.040 Latex allergy status; I25.2 Old myocardial infarction; Z87.01 Personal history of pneumonia (recurrent); Z98.891 History of uterine scar from previous surgery; Z71.6 Tobacco abuse counseling; Z68.31 Body mass index [BMI] 31.0-31.9, adult; Z82.5 Family history of asthma and other chronic lower respiratory diseases
CPT/HCPCS: 0240U; 70450; 71045; 80048; 80053; 81001; 82550; 82553; 83605; 83735; 83874; 83880; 84484; 85025; 85027; 93005; 94640; 94664; 94760; 96365; 96372; 96376; 97162; 97166; 97530; 97530-GP-CQ; 99285; G0378; J1335; J1650; U0002

== ENCOUNTER → 2021-12-19 | Outpatient (CLI) | payer MEDICARE, BC ==
[~2021-12-19] VITALS: Ht 157.5 cm; Wt 79.8 kg
[~2021-12-19] MED LIST changes: +AMLODIPINE BESY10 MG PO; +ATORVASTATIN CA40 MG PO; +FLONASE 0.05% N16 GM
== END ==
LOC: EROP 12:01
DX: U07.1 COVID-19 (principal); Z23 Encounter for immunization; I10 Essential (primary) hypertension
CPT/HCPCS: M0247; Q0247

== ENCOUNTER 2021-12-25 13:48 | Emergency (ER) | payer MEDICARE, BC ==
[2021-12-25 14:35] LABS: HEMOGLOBIN 11.5 gm/dl (12.3-15.3); RED BLOOD COUNT 3.82 M/UL (4.00-5.10); WHITE BLOOD COUNT 21.1 K/UL (4.5-11.0)
[2021-12-25] MEDS ORDERED: MACROBID 100 M100 M1 PO (19:34)
[2021-12-25] MEDS ORDERED: DOXYCYCLINE HY100 MG PO (20:18)
== END 2021-12-25 20:35 | disposition home or self-care (01) ==
LOC: ER1 13:48
PROVIDERS: Emergency Medicine
DX: S00.83XA Contusion of other part of head, initial encounter (principal); S80.01XA Contusion of right knee, initial encounter; S40.012A Contusion of left shoulder, initial encounter; N39.0 Urinary tract infection, site not specified; I10 Essential (primary) hypertension; I25.10 Atherosclerotic heart disease of native coronary artery without angina pectoris; J44.9 Chronic obstructive pulmonary disease, unspecified; W19.XXXA Unspecified fall, initial encounter
CPT/HCPCS: 70450; 71045; 72125; 73030; 73080; 73564; 80053; 81001; 82550; 82553; 83605; 83874; 84484; 85025; 87040; 87086; 93005; 96374; 96375; 99284; J2185; J2270; J2405

== ENCOUNTER → 2022-01-19 | Outpatient (CLI) | payer MEDICARE, BC ==
[~2022-01-19] MED LIST changes: +DOXYCYCLINE HY100 MG PO; +MACROBID 100 M100 M1 PO
== END ==
LOC: EMI 15:21
DX: M25.512 Pain in left shoulder (principal); R29.898 Other symptoms and signs involving the musculoskeletal system; Z91.81 History of falling; S42.292A Other displaced fracture of upper end of left humerus, initial encounter for closed fracture; W19.XXXA Unspecified fall, initial encounter; M62.522 Muscle wasting and atrophy, not elsewhere classified, left upper arm; R93.6 Abnormal findings on diagnostic imaging of limbs
CPT/HCPCS: 73221

== ENCOUNTER 2022-02-01 12:04 | Emergency (ER) | payer MEDICARE, BC ==
[2022-02-01 12:49] LABS: HEMOGLOBIN 10.2 gm/dl (12.3-15.3); RED BLOOD COUNT 3.44 M/UL (4.00-5.10); WHITE BLOOD COUNT 13.8 K/UL (4.5-11.0)
[2022-02-01] MEDS ORDERED: MAGNESIUM250 MG PO (16:44)
== END 2022-02-01 17:45 | disposition home or self-care (01) ==
LOC: ER1 12:04
PROVIDERS: Emergency Medicine
DX: I44.1 Atrioventricular block, second degree (principal); E83.42 Hypomagnesemia; Z20.822 Contact with and (suspected) exposure to COVID-19; I11.9 Hypertensive heart disease without heart failure; I25.2 Old myocardial infarction; Z95.5 Presence of coronary angioplasty implant and graft; Z88.1 Allergy status to other antibiotic agents; Z91.041 Radiographic dye allergy status; Z88.0 Allergy status to penicillin; Z91.040 Latex allergy status
CPT/HCPCS: 0241U; 71045; 80053; 81001; 82550; 82553; 83735; 84439; 84443; 84484; 85025; 93005; 96374; 96376; 99285; J3475

== ENCOUNTER 2022-03-13 21:13 | Inpatient (IN) | payer MEDICARE, BC ==
[~2022-03-13] VITALS: Ht 157.5 cm; Wt 87.1 kg
[~2022-03-13 21:13] MED LIST changes: +COREG6.25 MG PO; +MAGNESIUM250 MG PO; -NEURONTIN600 MG PO; +NEURONTIN800 MG PO
[2022-03-13 22:18] LABS: RED BLOOD COUNT 2.7 M/UL (4.00-5.10); WHITE BLOOD COUNT 17.3 K/UL (4.5-11.0)
[2022-03-13 22:41] LABS: BUN/CREATININE RATIO 28 (0-10)
[2022-03-14 01:09] LABS: HEMOGLOBIN 7.5 gm/dl (12.3-15.3); RED BLOOD COUNT 2.46 M/UL (4.00-5.10); WHITE BLOOD COUNT 17.4 K/UL (4.5-11.0)
[2022-03-14] MEDS ORDERED: PREDNISONE20 MG PO (09:39)
[2022-03-14] MEDS ORDERED: DOXYCYCLINE MO100 MG PO (09:40)
[2022-03-14] MEDS ORDERED: NYSTATIN15 GM TOP (09:41)
[2022-03-14] MEDS ORDERED: FUROSEMIDE20 MG PO (09:43)
[2022-03-14] MEDS ORDERED: POTASSIUM CHLO20 ME2 PO (09:43)
[2022-03-14] MEDS ORDERED: MAGNESIUM250 M1 PO (09:48)
[2022-03-14] MEDS ORDERED: ELIQUIS5 MG PO (09:50)
[2022-03-14 21:08] LABS: HEMOGLOBIN 8.3 gm/dl (12.3-15.3)
[2022-03-15 02:39] LABS: HEMOGLOBIN 8.4 gm/dl (12.3-15.3); RED BLOOD COUNT 2.77 M/UL (4.00-5.10); WHITE BLOOD COUNT 21.3 K/UL (4.5-11.0)
--- NOTE | 2022-03-15 09:45 | NUR ---
REPORT GIVEN TO JERMAINE GONZALEZ ON MED SURG 5 WITH ALL QUESTIONS ASKED AND ANSWERED
[2022-03-15 22:01] LABS: HEMOGLOBIN 5.3 gm/dl (12.3-15.3)
[2022-03-16 08:34] LABS: HEMOGLOBIN 7.2 gm/dl (12.3-15.3); WHITE BLOOD COUNT 16.7 K/UL (4.5-11.0)
[2022-03-16 08:35] LABS: RED BLOOD COUNT 2.36 M/UL (4.00-5.10)
[2022-03-16 08:54] LABS: BUN/CREATININE RATIO 20 (0-10)
[2022-03-16 18:12] LABS: HEMOGLOBIN 7.1 gm/dl (12.3-15.3)
[2022-03-17 02:05] LABS: HEMOGLOBIN 6.6 gm/dl (12.3-15.3)
[2022-03-17 05:59] LABS: HEMOGLOBIN 6.1 gm/dl (12.3-15.3)
[2022-03-17 18:48] LABS: WHITE BLOOD COUNT 12.8 K/UL (4.5-11.0)
[2022-03-17 18:51] LABS: HEMOGLOBIN 9.6 gm/dl (12.3-15.3); RED BLOOD COUNT 3.32 M/UL (4.00-5.10)
[2022-03-18 06:58] LABS: BUN/CREATININE RATIO 14 (0-10)
[2022-03-18 09:46] LABS: RED BLOOD COUNT 3.12 M/UL (4.00-5.10); WHITE BLOOD COUNT 13.5 K/UL (4.5-11.0)
== END 2022-03-18 11:25 | DRG 378 ==
LOC: ER1 21:13 → CDU 23:16 → PROG CARE 23:16
PROVIDERS: Internal Medicine; Internal Medicine Gastroenterology; Physician Assistant; Surgery; ADMIT Internal Medicine
PROC: 0DJ08ZZ Inspection of Upper Intestinal Tract, Via Natural or Artificial Opening Endoscopic (ICD-10-PCS; 2022-03-14)
PROC: 0DJD8ZZ Inspection of Lower Intestinal Tract, Via Natural or Artificial Opening Endoscopic (ICD-10-PCS; 2022-03-14)
PROC: 30233N1 Transfusion of Nonautologous Red Blood Cells into Peripheral Vein, Percutaneous Approach (ICD-10-PCS; principal; 2022-03-14 17:44)
PROC: 0DJD8ZZ Inspection of Lower Intestinal Tract, Via Natural or Artificial Opening Endoscopic (ICD-10-PCS; 2022-03-15)
PROC: 0DJD8ZZ Inspection of Lower Intestinal Tract, Via Natural or Artificial Opening Endoscopic (ICD-10-PCS; 2022-03-16)
DX: K57.33 Diverticulitis of large intestine without perforation or abscess with bleeding (principal); J96.11 Chronic respiratory failure with hypoxia; I50.32 Chronic diastolic (congestive) heart failure; E87.2 Acidosis; D62 Acute posthemorrhagic anemia; Z20.822 Contact with and (suspected) exposure to COVID-19; I25.10 Atherosclerotic heart disease of native coronary artery without angina pectoris; I11.0 Hypertensive heart disease with heart failure; F41.9 Anxiety disorder, unspecified; K21.9 Gastro-esophageal reflux disease without esophagitis; J44.9 Chronic obstructive pulmonary disease, unspecified; J84.112 Idiopathic pulmonary fibrosis; E86.0 Dehydration; E03.9 Hypothyroidism, unspecified; G47.33 Obstructive sleep apnea (adult) (pediatric); K64.4 Residual hemorrhoidal skin tags; M54.2 Cervicalgia; Z99.81 Dependence on supplemental oxygen; Z95.1 Presence of aortocoronary bypass graft; Z88.0 Allergy status to penicillin; Z98.890 Other specified postprocedural states; Z90.49 Acquired absence of other specified parts of digestive tract; Z90.710 Acquired absence of both cervix and uterus; Z91.041 Radiographic dye allergy status; Z91.040 Latex allergy status; Z88.8 Allergy status to other drugs, medicaments and biological substances; Z82.49 Family history of ischemic heart disease and other diseases of the circulatory system; Z87.891 Personal history of nicotine dependence; Z79.82 Long term (current) use of aspirin; Z90.89 Acquired absence of other organs; Z79.899 Other long term (current) drug therapy
CPT/HCPCS: 36415; 78278; 80048; 80053; 82272; 82550; 82553; 83540; 83550; 83605; 83690; 84484; 85014; 85018; 85025; 86850; 86900; 86901; 86920; 93005; 94640; 94664; 94760; 96374; 96375; 99285; A9560; C9113; J1364; J1642; J1940; J2250; J2270; J2405; J2704; J7040; J7050; P9016; U0002

== ENCOUNTER 2022-05-18 11:37 | Inpatient (IN) | payer MEDICARE, BC ==
[~2022-05-18] VITALS: Ht 152.4 cm; Wt 89.6 kg
[~2022-05-18 11:37] MED LIST changes: +DOXYCYCLINE MO100 MG PO; +ELIQUIS5 MG PO; +FUROSEMIDE20 MG PO; +MAGNESIUM250 M1 PO; +NYSTATIN15 GM TOP; +POTASSIUM CHLO20 ME2 PO
[2022-05-18 12:13] LABS: HEMOGLOBIN 10.4 gm/dl (12.3-15.3); RED BLOOD COUNT 3.65 M/UL (4.00-5.10); WHITE BLOOD COUNT 13.6 K/UL (4.5-11.0)
[2022-05-18 12:46] LABS: BUN/CREATININE RATIO 22 (0-10)
[2022-05-18] MEDS ORDERED: SOTALOL80 MG PO (18:01)
[2022-05-18] MEDS ORDERED: PROAIR HFA8.5 GM INH (18:02)
[2022-05-18] MEDS ORDERED: POTASSIUM CHLO20 ME1 PO (18:03)
[2022-05-18] MEDS ORDERED: FUROSEMIDE20 MG PO (18:04)
[2022-05-18] MEDS ORDERED: GABAPENTIN600 MG PO ×2 (18:04→18:05)
[2022-05-18] MEDS ORDERED: AMLODIPINE BESY10 MG PO (18:06)
[2022-05-18] MEDS ORDERED: MIRTAZAPINE45 MG PO (18:07)
[2022-05-18] MEDS ORDERED: VALSARTAN320 MG PO (18:08)
[2022-05-18] MEDS ORDERED: IPRAT-ALBUT 0.5-3 ML INH (18:09)
[2022-05-18] MEDS ORDERED: SERTRALINE HCL100 MG PO (18:09)
[2022-05-18] MEDS ORDERED: CETIRIZINE HCL10 MG PO (18:10)
[2022-05-18] MEDS ORDERED: MELATONIN10 M2 PO (18:11)
[2022-05-18] MEDS ORDERED: HYDROCHLOROTHIA25 MG PO (18:12)
[2022-05-18] MEDS ORDERED: VITAMIN D3125 MCG PO (18:12)
[2022-05-18] MEDS ORDERED: ZINC50 M1 PO (18:12)
[2022-05-18] MEDS ORDERED: VITAMIN C500 M4 PO (18:13)
[2022-05-18] MEDS ORDERED: ANTI-DIARRHEAL2 MG PO (18:14)
[2022-05-19 02:47] LABS: HEMOGLOBIN 10.8 gm/dl (12.3-15.3); RED BLOOD COUNT 3.77 M/UL (4.00-5.10); WHITE BLOOD COUNT 14.7 K/UL (4.5-11.0)
[2022-05-20 04:32] LABS: HEMOGLOBIN 10.7 gm/dl (12.3-15.3); RED BLOOD COUNT 3.75 M/UL (4.00-5.10); WHITE BLOOD COUNT 16.8 K/UL (4.5-11.0)
[2022-05-20 04:52] LABS: BUN/CREATININE RATIO 29 (0-10)
[2022-05-21 07:29] LABS: HEMOGLOBIN 11.6 gm/dl (12.3-15.3); WHITE BLOOD COUNT 17.7 K/UL (4.5-11.0)
[2022-05-21 07:31] LABS: RED BLOOD COUNT 4.2 M/UL (4.00-5.10)
[2022-05-21 07:47] LABS: BUN/CREATININE RATIO 37 (0-10)
[2022-05-22 02:25] LABS: HEMOGLOBIN 11.2 gm/dl (12.3-15.3); RED BLOOD COUNT 3.96 M/UL (4.00-5.10); WHITE BLOOD COUNT 21.7 K/UL (4.5-11.0)
[2022-05-23 02:36] LABS: HEMOGLOBIN 11.1 gm/dl (12.3-15.3); RED BLOOD COUNT 3.94 M/UL (4.00-5.10); WHITE BLOOD COUNT 21.6 K/UL (4.5-11.0)
[2022-05-23] MEDS ORDERED: ELIQUIS 5 MG TAB5 MG PO (12:22)
[2022-05-23] MEDS ORDERED: HYDRALAZINE HCL10 MG PO (12:22)
[2022-05-23] MEDS ORDERED: BETAPACE 80MG T80 MG PO (12:22)
[2022-05-23] MEDS ORDERED: OMNICEF 300 MG300 MG PO (12:39)
== END 2022-05-23 16:15 | disposition home or self-care (01) | DRG 682 ==
LOC: ER1 11:37 → CDU 13:25 → PROG CARE 13:25 → CCU 16:10 → PROG CARE 05-21 11:47
PROVIDERS: Internal Medicine; Internal Medicine Pulmonary Disease; Nurse Practitioner; Physician Assistant; ADMIT Internal Medicine
PROC: B548ZZA Ultrasonography of Superior Vena Cava, Guidance (ICD-10-PCS; principal; 2022-05-18)
PROC: 02HV33Z Insertion of Infusion Device into Superior Vena Cava, Percutaneous Approach (ICD-10-PCS; principal; 2022-05-18)
PROC: 5A09357 Assistance with Respiratory Ventilation, Less than 24 Consecutive Hours, Continuous Positive Airway Pressure (ICD-10-PCS; 2022-05-18)
PROC: 5A09357 Assistance with Respiratory Ventilation, Less than 24 Consecutive Hours, Continuous Positive Airway Pressure (ICD-10-PCS; 2022-05-20)
PROC: B24BZZZ Ultrasonography of Heart with Aorta (ICD-10-PCS; 2022-05-21)
PROC: 5A09357 Assistance with Respiratory Ventilation, Less than 24 Consecutive Hours, Continuous Positive Airway Pressure (ICD-10-PCS; 2022-05-21)
PROC: 5A09357 Assistance with Respiratory Ventilation, Less than 24 Consecutive Hours, Continuous Positive Airway Pressure (ICD-10-PCS; 2022-05-22)
PROC: 5A09357 Assistance with Respiratory Ventilation, Less than 24 Consecutive Hours, Continuous Positive Airway Pressure (ICD-10-PCS; 2022-05-22)
DX: N17.0 Acute kidney failure with tubular necrosis (principal); J18.9 Pneumonia, unspecified organism; R57.0 Cardiogenic shock; Z20.822 Contact with and (suspected) exposure to COVID-19; J96.21 Acute and chronic respiratory failure with hypoxia; J96.22 Acute and chronic respiratory failure with hypercapnia; I50.32 Chronic diastolic (congestive) heart failure; N30.00 Acute cystitis without hematuria; J44.1 Chronic obstructive pulmonary disease with (acute) exacerbation; J44.0 Chronic obstructive pulmonary disease with (acute) lower respiratory infection; E87.1 Hypo-osmolality and hyponatremia; I95.9 Hypotension, unspecified; B96.4 Proteus (mirabilis) (morganii) as the cause of diseases classified elsewhere; I27.20 Pulmonary hypertension, unspecified; E03.9 Hypothyroidism, unspecified; T44.7X5A Adverse effect of beta-adrenoreceptor antagonists, initial encounter; F41.9 Anxiety disorder, unspecified; K21.9 Gastro-esophageal reflux disease without esophagitis; I11.0 Hypertensive heart disease with heart failure; I25.10 Atherosclerotic heart disease of native coronary artery without angina pectoris; E87.5 Hyperkalemia; E78.5 Hyperlipidemia, unspecified; I49.5 Sick sinus syndrome; J84.112 Idiopathic pulmonary fibrosis; I08.2 Rheumatic disorders of both aortic and tricuspid valves; E66.01 Morbid (severe) obesity due to excess calories; G47.33 Obstructive sleep apnea (adult) (pediatric); I48.0 Paroxysmal atrial fibrillation; Z79.01 Long term (current) use of anticoagulants; Z99.81 Dependence on supplemental oxygen; Z95.5 Presence of coronary angioplasty implant and graft; Z87.19 Personal history of other diseases of the digestive system; Z90.49 Acquired absence of other specified parts of digestive tract; Z90.710 Acquired absence of both cervix and uterus; Z98.891 History of uterine scar from previous surgery; Z88.0 Allergy status to penicillin; Z88.8 Allergy status to other drugs, medicaments and biological substances; Z91.041 Radiographic dye allergy status; Z88.1 Allergy status to other antibiotic agents; Z91.040 Latex allergy status; Z87.891 Personal history of nicotine dependence; Z82.49 Family history of ischemic heart disease and other diseases of the circulatory system; Z83.3 Family history of diabetes mellitus; Z87.440 Personal history of urinary (tract) infections; Z98.51 Tubal ligation status
CPT/HCPCS: ECHO; 36415; 71045; 80048; 80053; 81001; 82550; 82553; 82570; 83735; 83880; 84100; 84132; 84133; 84156; 84300; 84439; 84443; 84484; 85025; 85027; 85610; 87040; 87086; 92610; 93005; 93270; 93306; 94640; 94660; 94760; 96374; 96375; 99285; C9113; J0360; J0456; J0696; J1265; J2405; J2920; J2930; J3475; J7030; J7040; P9047

== ENCOUNTER 2022-05-26 17:44 | Emergency (ER) | payer MEDICARE, BC ==
[~2022-05-26 17:44] MED LIST changes: +ANTI-DIARRHEAL2 MG PO; +BETAPACE 80MG T80 MG PO; +CETIRIZINE HCL10 MG PO; +ELIQUIS 5 MG TAB5 MG PO; +GABAPENTIN600 MG PO; +HYDRALAZINE HCL10 MG PO; +POTASSIUM CHLO20 ME1 PO; +PROAIR HFA8.5 GM INH; +SOTALOL80 MG PO
[2022-05-26 18:20] LABS: HEMOGLOBIN 10.5 gm/dl (12.3-15.3); RED BLOOD COUNT 3.65 M/UL (4.00-5.10); WHITE BLOOD COUNT 15.8 K/UL (4.5-11.0)
[2022-05-26 18:55] LABS: BUN/CREATININE RATIO 26 (0-10)
== END 2022-05-26 21:10 | disposition home or self-care (01) ==
LOC: ER1 17:44
PROVIDERS: Physician Assistant
DX: I10 Essential (primary) hypertension (principal); D72.829 Elevated white blood cell count, unspecified; B37.9 Candidiasis, unspecified; L76.32 Postprocedural hematoma of skin and subcutaneous tissue following other procedure; J44.9 Chronic obstructive pulmonary disease, unspecified; Z88.8 Allergy status to other drugs, medicaments and biological substances; Z88.5 Allergy status to narcotic agent; Z88.0 Allergy status to penicillin; Z95.5 Presence of coronary angioplasty implant and graft; Z88.1 Allergy status to other antibiotic agents
CPT/HCPCS: 80053; 81001; 82550; 82553; 84484; 85025; 87086; 96374; 99283; J0360

== ENCOUNTER 2022-06-03 19:43 | Emergency (ER) | payer MEDICARE, BC | END 2022-06-03 21:31 | disposition home or self-care (01) | LOC: ER1 19:43 | DX: I10 Essential (primary) hypertension (principal); J44.9 Chronic obstructive pulmonary disease, unspecified; Z88.1 Allergy status to other antibiotic agents | CPT/HCPCS: 99282 ==